=== PATIENT | male | born 1990 ===

== ENCOUNTER 2024-10-29 10:12 | Outpatient (REF) | payer OTHER, SELFPAY ==
--- OUTSIDE RECORDS SUMMARY | 2020-07-12 14:10 | XMS_ITS | Encounter Summary ---
Author Organization [facility] Address [address] [place] [address] Phone Care Team Providers Care Wellness Instructor Name Role Phone Jackeline Olson MD Primary Care Provider Encounter Details Date Type Department Care Team (Late st Contact Info) Description 07/12/2020 2:10 PM EDT Hospital Encounter [facility] [address] [place] [address] Roxann Dow FNP [address] [place] [phone] [email or web address] Social History Tobacco Use Types Packs/Day Years Used Date Smoking Tobacco: Never Smokeless Tobacco: Never Alcohol Use Standard Drinks/Week Comments Never 0 (1 standard drink = 0.6 oz pur e alcohol) Education Answer Date Recorded Are you interested in more education? Not on ariana e 06/04/2022 Are you concerned about learning? Not on file 06/04/2022 No 06/04/2022 No 06/04/2022 Digital Access Answer Date Recorded No 07/05/2022 No 07/05/2022 Reliable internet access at home? Not on file 07/05/2022 Device with a working camera? Not on file Intimate Partner Violence Answer Date R ecorded Are you denied basic needs s uch as food, clothing, or medical care? No 03/17/2023 In the past 12 months have y ou been in a relationship with a person who hurts, threatens, or tries to control you? No 03/17/2023 Are you denied basic needs s uch as food, clothing, or medical care? No 03/17/2023 In the past 12 months have y ou been in a relationship with a person who hurts, threatens, or tries to control you? No 03/17/2023 Comments Unknown Sex and Gender Information Value Date Recorded Sex Assigned at Female 04/02/2019 9:34 AM EST Legal Sex Male 8:40 AM EST Gender Identity Transgender Male 11/26/2019 7:53 PM EDT Sexual Orientation Queer 08/28/2020 9: 15 AM EDT documented as of this encounter Functional Status * Calculated C-SSRS Risk Score (Lifetime/Recent) Answer Date of Assessment Author No Risk Indicated 03/17/2023 10:03 PM Karla Gleason, ROBERT * [place] Suicide Severity Rating Scale (Screener/Recent Self-Report) Question Answer Date of Assessment Author 1. Wish to be (Past 1 Month) No 024 10:03 PM Karla Reardon RN 2. Non-Specific Active Suici blanche Thoughts (Past 1 Month) No 03/17/2023 10:03 PM Doyle Reardon RN 6. Suicidal Behavior (Lifetime) No 10:03 PM Karla Reardon RN documented as of this encounter Plan of Treatment Upcoming Encounters Date Type Department Care Team (Late st Contact Info) Description 12/18/2024 10:00 AM EST Office Visit [facility] Orthopedics & Sports Medicine [address] [place] [address] [place] [address] Bryce Issa DO 4 [facility] [place] [place] [address] [email or web address] documented as of this encounter Procedures Procedure Name Priority Date/Time Associated Diagnosis Comments XR KNEE 4 OR MORE VIEWS (RIGHT) Urgent/patient waiting 07/12/2020 2:30 PM EDT Bilateral chronic knee pain documented in this encounter Results * XR KNEE 4 OR MORE VIEWS (RIGHT) (07/12/2020 2:30 PM EDT) Anatomical Region Laterality Modality Knee Right Computed Radiogr aphy 07/12/2020 2:33 PM EDT Impressions 07/12/2020 2:54 PM EDT Normal examination ATTESTATION: Clemencia Schaffer as teaching physician, have reviewed the images for this case and if necessary edited the report originally created by Hira Stack. Narrative 07/12/2020 2:54 PM EDT TECHNIQUE: XR KNEE 4 OR MORE VIEWS (RIGHT), XR KNEE 4 OR MORE VIEWS (LEFT) COMPARISON: None. FINDINGS: Right knee: No bone, joint, or soft tissue abnormality is seen. Left knee: No bone, joint, or soft tissue abnormality is seen. Procedure Note Clemencia Terrell MD - 07/12/2020 TECHNIQUE: XR KNEE 4 OR MORE VIEWS (RIGHT), XR KNEE 4 OR MORE VIEWS(LEFT) COMPARISON: None. FINDINGS: Right knee: No bone, joint, or soft tissue abnormality is seen. Left knee: No bone, joint, or soft tissue abnormality is seen. IMPRESSION: Normal examination ATTESTATION: Clemencia Schaffer as teaching physician, have reviewed theimages for this case and if necessary edited the report originally createdby Hira Stack. Roxann Dow BAR FINISH OPERATOR IMG XR LOWER EXTREMITY Jeri l Result documented in this encounter Visit Diagnoses Not on filedocumented in this encounter Care Teams Wellness Instructor Relationship Specialty Start Date End Date Jackeline Olson MD [address] [place] [address] [email or web address] PCP - General Family Medicine 03/20/19 03/16/23 documented as of this encounter Additional Source Comments The information contained in this document represents components of the legal health record. It is not the complete legal health record.[facility]
--- OUTSIDE RECORDS SUMMARY | 2020-07-12 14:13 | XMS_ITS | Encounter Summary ---
Author Organization [facility] Address [address] [place] [address] Phone Care Team Providers Care Blending Supervisor Name Role Phone Jackeline Olson MD Primary Care Provider Encounter Details Date Type Department Care Team (Late st Contact Info) Description 07/12/2020 2:13 PM EDT Hospital Encounter [facility] [address] [place] [address] Roxann Dow FNP [address] [place] [phone] [email or web address] Social History Tobacco Use Types Packs/Day Years [...] 03/17/2023 10:03 PM Karla Gleason, ROBERT * [place] Suicide Severity Rating Scale (Screener/Recent Self-Report) Question [...] Description 12/18/2024 10:00 AM EST Office Visit [facility] Orthopedics & Sports Medicine [address] [place] [address] [place] [address] Bryce Issa DO 4 [facility] [place] [address] [email or web address] documented as of this encounter Procedures Procedure Name Priority Date/Time Associated Diagnosis Comments XR KNEE 4 OR MORE VIEWS (LEFT) Urgent/patient waiting 07/12/2020 2:31 PM EDT Bilateral chronic knee pain documented in this encounter Results * XR KNEE 4 OR MORE VIEWS (LEFT) (07/12/2020 2:31 PM EDT) Anatomical Region Laterality Modality Knee Left Computed Radiogr aphy 07/12/2020 2:33 PM EDT [...] report originally createdby Hira Stack. Roxann Dow WRECKING CRANE ENGINE OPERATOR IMG XR LOWER EXTREMITY Jeri l Result documented in this encounter Visit Diagnoses Not on filedocumented in this encounter Care Teams Blending Supervisor Relationship Specialty Start Date End Date Jackeline Olson MD [address] [place] [phone] [email or web address] PCP - General Family Medicine 03/20/19 03/16/23 documented as of this encounter Additional Source Comments The information contained in this document represents components of the legal health record. It is not the complete legal health record.[facility]
--- OUTSIDE RECORDS SUMMARY | 2024-10-25 10:00 | XMS_ITS | Encounter Summary ---
Author Organization [facility] Address [address] [place] [address] Phone Care Team Providers Care Quality Control Tech Name Role Phone Hira Dias TAR CHASER Primary Care Provider [phone] Reason for Visit * Reason Comments New Patient Hip Pain Patient is being see n today for right hip pain. Encounter Details Date Type Department Care Team (Late st Contact Info) Description 10/25/2024 10:00 AM EDT Office Visit [facility] Orthopedics & Sports Medicine [address] [place] [address] [place] [address] Caleb Shaw MD [address] [place] [address] [facility] [place] [place] [address] [email or web address] Pain (Primary Dx); Tear of right acetabular labrum, initial encounter Social History Tobacco Use Types Packs/Day Years [...] AM EDT documented as of this encounter Last Filed Vital Signs Vital Sign Reading Time Taken Comments Blood Pressure - - Pulse - - Temperature - - Respiratory Rate - - Oxygen Saturation - - Inhaled Oxygen Concentration - - Weight 60.8 kg (134 lb 0.6 oz) 10/25/2024 10:07 AM EDT Height - - Body Mass Index 22.31 03/17/2023 5:08 PM EST documented in this encounter Progress Notes * Caleb Shaw MD - 10/25/2024 10:00 AM EDT PRESENT ILLNESS: 10/25/2024: Mr. Roque is a 34 y.o. adult who presents for evaluation of his right hip pain. He feels this pain has been ongoing for months. He particularly endorses right groin and lateral hip region pain, otherwise describing it as feeling as though it is occurring at the center of his hip. He feels the pain is constant, and an average of 6-7/10, and going up to a 9.5/10 in severity, at its worst. He notes that the pain is exacerbated by walking, stairs, kneeling, getting into or out of a car, and putting on shoes. He saw his PCP, did physical therapy, saw another physician at [facility] and then [facility]. He had a right hip ultrasound-guided corticosteroid injection which relieved the pain. He hasnoted ongoing clicking in the right hip, accompanied by pain. He has also noted occasional locking of the hip in the past. He has been using a cane for aid with ambulation. He had a right hip MRI at [facility] which was not visible to me. 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 Genetics did not recommend any additional monitoring Hormone disorder Mild intermittent asthma Past Surgical History: Procedure Laterality Date MASTECTOMY BILATERAL 2014 TOTAL ABDOMINAL HYSTERECTOMY W/ BILATERAL SALPINGOOPHORECTOMY 2014 Current Outpatient Medications on File Prior to Visit Medication Sig Dispense Refill Last Dispense ascorbic acid, vitamin C, (VITAMIN C) 250 MG tablet Take 250 mg by mouth daily. Unknown (patient-reported) [id number] 167 mg-65 mg -50 mg Tab Take by mouth. Unknown (patient-reported) cholecalciferol (VITAMIN D3) 2,000 unit capsule Take 500 Units by mouth daily. Unknown (patient-reported) gluc loomis/chondro loomis A/vit C/Mn (GLUCOSAMINE 1500 COMPLEX ORAL) Take by mouth. Unknown (patient-reported) omega 3-qpv-jjg-fish oil 360-1,200 mg CpDR Take by mouth. Unknown (patient-reported) testosterone (ANDROGEL) 20.25 mg/1.25 gram (1.62 %) transdermal gel pump Apply 2 application topically daily. 150 g 1 Unknown (outside pharmacy) therapeutic multivitamin tablet Take 1 tablet by mouth daily. Unknown (patient-reported) acetaminophen (TYLENOL) 650 MG CR tablet Take 650 mg by mouth every 8 (eight) hours as needed for pain (specific location in comments). Unknown (patient-reported) albuterol 90 mcg/actuation inhaler Inhale 2 puffs into the lungs every 4 (four) hours as needed forwheezing or shortness of breath/dyspnea. (Patient not taking: Reported on 10/25/2024) 1 Inhaler 1 Unknown (outside pharmacy) dextromethorphan-guaiFENesin (MUCINEX DM) 30-600 mg per 12 hr tablet Take 1 tablet by mouth every 12 (twelve) hours. (Patient not taking: Reported on 10/25/2024) Unknown (patient-reported) diclofenac sodium (PENNSAID) 1.5 % Drop Apply 40 drops topically 4 (four) times a day. Unknown (patient-reported) fluticasone propionate (FLOVENT HFA) 220 mcg/actuation inhaler Inhale 1 puff into the lungs 2 (two)times a day. (Patient not taking: Reported on 10/25/2024) 1 Inhaler 5 Unknown (outside pharmacy) ketorolac (TORADOL) 10 mg tablet Take 1 tablet (10 mg total) by mouth every 6 (six) hours as neededfor pain (specific location in comments). (Patient not taking: Reported on 10/25/2024) 25 tablet 0 Unknown (outside pharmacy) tiZANidine (ZANAFLEX) 4 MG tablet Take 1 tablet (4 mg total) by mouth every 6 (six) hours as needed. (Patient not taking: Reported on 10/25/2024) 20 tablet 0 Unknown (outside pharmacy) traZODone (DESYREL) 50 MG tablet Take 50 mg by mouth nightly at bedtime. Unknown (patient-reported) No current facility-administered medications on file prior to visit. 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 ALLERGIES: No Known Allergies VITAL SIGNS: Wt 60.8 kg (134 lb 0.6 oz) BMI 22.31 kg/m?? ROS: Negative other than HPI. PHYSICAL EXAMINATION: Gen: No acute distress. HEENT: Normocephalic atraumatic. CVS: RRR. RESP: Nonlabored respirations. Gait: Antalgic limp, shortened stance on the right lower extremity. Right lower extremity: No open wounds or deformities. Positive tenderness to palpation noted over groin/anterior hip. Hip ROM: Flexion 115, ER 60, IR 15-20. Positive pain with hip end ROM. Stinchfield positive. FADIR and CARLITOS positive. Click and pain elicited. Hip abductor 5/5, hip flexors 5/5, quadriceps 5/5, hamstrings 5/5, gastrocsoleus 5/5, tibialis anterior 5/5, EHL 5/5. Sensation intact to light touch L1-S1. Warm well perfused. Brisk capillary refill. Dorsalis pedis pulse 2+. Left LE: No open wounds or deformities. Denied tenderness to palpation. Hip ROM: Flexion 130, ER 70, IR 30. No pain with hip ROM. Stinchfield negative. Hip abductor 5/5, hip flexors 5/5, quadriceps 5/5, hamstrings 5/5, gastrocsoleus 5/5, tibialis anterior 5/5, EHL 5/5. Sensation intact to light touch L1-S1. Warm well perfused. Brisk capillary refill. Dorsalis pedis pulse 2+. Imaging: My independent review and interpretation of the imaging follows. Outside imaging May 14, 2024: AP pelvis and right hip x-rays showed no evident fracture or dislocation. Mild degenerative changes both hips equivalent. Lumbar spine AP and lateral with minimal to mild spinal asymmetry and some straightening of lumbar lordosis. [facility] lumbar spine MRI 06/05/2024: Radiology report/impression following: Unremarkable MRI lumbar spine. [facility] hip MRI not visible demonstrated degenerative tear of right superior labrum. ASSESSMENT & PLAN: 34 y.o. adult with right hip labral tear. We discussed nonoperative and operative treatment options as well as the risks and benefits of the options discussed. At this point Mr. Roque has tried multiple nonoperative treatments including activity modification, pain control with NSAIDs, physical therapy, and injection. His pain and limitations in activity continue to occur, and have increased in frequency, to the point of being a near daily concern. His pain and limitations hinder his ability to do his activities of daily living, and have significantly impacted his quality of life. -He is interested in considering a right hip arthroscopy. - I have placed a referral to my colleague Dr. Issa for evaluation for this. -I recommended obtaining the right hip MRI imaging. Caleb Shaw MD documented in this encounter Plan of Treatment Upcoming Encounters Date Type Department Care Team (Late st Contact Info) Description 12/18/2024 10:00 AM EST Office Visit [facility]opedics & Sports Medicine [address] [place] [address] [place] [address] Bryce Issa DO [address] [place] [address] [facility] [place] [address] [email or web address] documented as of this encounter Visit Diagnoses Diagnosis Pain- Primary Generalized pain Tear of right acetabular labrum, initial encounter documented in this encounter Care Teams Quality Control Tech Relationship Specialty Start Date End Date Hira Dias, NIK [address] [place] [id number] PCP - General Nurse Practitioner 10/18/24 documented as of this encounter Additional Source Comments The information contained in this document represents components of the legal health record. It is not the complete legal health record.[facility]
--- OUTSIDE RECORDS SUMMARY | 2024-10-29 12:33 | XMS_ITS | Encounter Summary ---
Author Organization [facility] Address [address] [facility] [address] [place] [address] Phone Care Team Providers Care Mailing Machine Helper Name Role Phone Jackeline Olson MD Primary Care Provider Pcp, Unknown Primary Care Provider Hira Fowler NP Primary Care Provider [phone] Encounter Details Date Type Department Care Team (Late st Contact Info) Description 05/26/2020 Procedure Pass Non-Invasive Cardiology [address] [place] [address] Social History Tobacco Use Types Packs/Day Years Used Date Smoking Tobacco: Never Smokeless Tobacco: Never Alcohol Use Standard Drinks/Week Comments Never 0 (1 standard drink = 0.6 oz pur e alcohol) Comments Unknown Sex and Gender Information Value Date Recorded Sex Assigned at Female 04/02/2019 9:34 AM EST Legal Sex Male 8:40 AM EST Gender Identity Transgender Male 11/26/2019 7:53 PM EDT Sexual Orientation Queer 08/28/2020 9: 15 AM EDT documented as of this encounter Plan of Treatment Upcoming Encounters Date Type Department Care Team (Late st Contact Info) Description 12/18/2024 10:00 AM EST Office Visit [facility] [address] [place] [address] [place] [address] Bryce Issa, DO 4 [facility] [place] [address] [email or web address] documented as of this encounter Visit Diagnoses Not on filedocumented in this encounter Care Teams Mailing Machine Helper Relationship Specialty Start Date End Date Jackeline Olson MD 15 [facility] [address] [place] [address] [email or web address] PCP - General Family Medicine 03/20/19 03/16/23 Pcp, Unknown PCP - General 03/17/23 10/17/24 Hira Dias NP [address] [place] [phone] PCP - General Nurse Practitioner 10/18/24 documented as of this encounter Additional Source Comments The information contained in this document represents components of the legal health record. It is not the complete legal health record.[facility]
--- OUTSIDE RECORDS SUMMARY | 2024-10-29 12:33 | XMS_ITS | Encounter Summary ---
Author Organization [facility] Address [address] [place] [phone] Phone Care Team Providers Care Clothing Supervisor Name Role Phone Jackeline Olson MD Primary Care Provider Pcp, Unknown Primary Care Provider Hira Fowler NP Primary Care Provider [phone] Encounter Details Date Type Department Care Team (Late st Contact Info) Description 07/29/2020 Procedure Pass [address] [address] Social History Tobacco Use Types Packs/Day Years [...] Description 12/18/2024 10:00 AM EST Office Visit [facility]opedics & Sports Medicine [address] [place] [address] [place] [address] Bryce Issa, DO 4 [facility] [place] [address] [email or web address] documented as of this encounter Visit Diagnoses Not on filedocumented in this encounter Care Teams Clothing Supervisor Relationship Specialty Start Date End Date Jackeline Olson MD [address] [address] [email or web address] PCP - General Family Medicine 03/20/19 03/16/23 Pcp, Unknown PCP - General 03/17/23 10/17/24 Hira Dias NP [address] [place] [id number] PCP - General Nurse Practitioner 10/18/24 documented as of this encounter Additional Source Comments The information contained in this document represents components of the legal health record. It is not the complete legal health record.[facility]
--- OUTSIDE RECORDS SUMMARY | 2024-10-29 12:33 | XMS_ITS | Encounter Summary ---
Author Organization [facility] Address [address] [place] [address] Phone Care Team Providers Care Boatbuilder Supervisor Name Role Phone Jackeline Olson MD Primary Care Provider [phone] Pcp, Unknown Primary Care Provider Hira Fowler NP Primary Care Provider [phone] Encounter Details Date Type Department Care Team (Late st Contact Info) Description 07/29/2020 Procedure Pass [address] [address] Social History Tobacco Use Types Packs/Day Years [...] Description 12/18/2024 10:00 AM EST Office Visit [facility] Orthopedics & Sports Medicine [address] [place] [address] [place] [address] Bryce Issa, DO [address] [facility] [place] [address] [email or web address] documented as of this encounter Visit Diagnoses Not on filedocumented in this encounter Care Teams Boatbuilder Supervisor Relationship Specialty Start Date End Date Jackeline Olson MD [address] [address] [email or web address] PCP - General Family Medicine 03/20/19 03/16/23 Pcp, Unknown PCP - General 03/17/23 10/17/24 Hira Dias NP [address] [place] [phone] PCP - General Nurse Practitioner 10/18/24 documented as of this encounter Additional Source Comments The information contained in this document represents components of the legal health record. It is not the complete legal health record.[facility]
--- OUTSIDE RECORDS SUMMARY | 2024-10-29 12:33 | XMS_ITS | Clinical Summary ---
Author Organization [employer] [facility] Address [address] [place] [address] Phone Care Team Providers Care Appliance Parts Counter Clerk Name Role Phone Hira Dias CERTIFIED RESIDENTIAL MEDICATION AIDE Primary Care Provider [phone] Allergies No known active allergies Medications albuterol 90 mcg/actuation inhaler Inhale 2 puffs into the lungs every 4 (four) hours as needed for wheezing or shortness of breath/dyspnea. 1 Inhaler 1 0 Active Additional Information Patient not taking.Reported on 10/25/2024 dextromethorphan -guaiFENesin (MUCINEX DM) 30-600 mg per 12 hr tablet Take 1 tablet by mouth every 12 (twelve) hours. Active therapeutic multivitamin tablet Take 1 tablet by mouth daily. Active [id number]-gqi-[id number] [id number] 167 mg-65 mg -50 mg Tab Take by mouth. Activ e ascorbic acid, vitamin C, (VITAMIN C) 250 MG tablet Take 250 mg by mouth daily. Active cholecalciferol (VITAMIN D3) 2,000 unit capsule Take 500 Units by mouth daily. Active fluticasone propionate (FLOVENT HFA) 220 mcg/actuation inhaler Inhale 1 puff into the lungs 2 (two) times a day. 1 Inhaler 5 0 Active Additional Information Patient not taking.Reported on 10/25/2024 omega 3-lhg-acl-fish oil 360-1,200 mg CpDR Take by mouth. Activ e gluc loomis/chondro loomis A/vit C/Mn (GLUCOSAMINE 1500 COMPLEX ORAL) Take by mouth. Activ e testosterone (ANDROGEL) 20.25 mg/1.25 gram (1.62 %) transdermal gel pumpIndications: Hormone disorder Apply 2 application topically daily. 150 g 1 2 Active tiZANidine (ZANAFLEX) 4 MG tablet Take 1 tablet (4 mg total) by mouth every 6 (six) hours as needed. 20 tablet 4 Active Additional Information Patient not taking.Reported on 10/25/2024 ketorolac (TORADOL) 10 mg tablet Take 1 tablet (10 mg total) by mouth every 6 (six) hours as needed for pain (specific location in comments). 25 tablet 4 Active Additional Information Patient not taking.Reported on 10/25/2024 traZODone (DESYREL) 50 MG tablet Take 50 mg by mouth nightly at bedtime. Active diclofenac sodium (PENNSAID) 1.5 % Drop Apply 40 drops topically 4 (four) times a day. Active acetaminophen (TYLENOL) 650 MG CR tablet Take 650 mg by mouth every 8 (eight) hours as needed for pain (specific location in comments). Active Active Problems Problem Noted Date Diagnosed Date Heart palpitations 07/12/2020 Palpitations 05/26/2020 Assessment & Plan (05/26/2020 2:18 PM EDT): Baseline EKG obtained in office today showed NSR without obvious conduction abnormalities. Will get labs although given time course, suspect these will be normal. Event monitor ordered. Trigger finger, left middle finger 04/02/2019 Assessment & Plan (04/02/2019 12:26 PM EST): Reassured patient that this presentation is not at all consistent with skin cancer and I think he has trigger finger. I explained what this is and offered a steroid injection if desired, which he did wish to proceed with today. Risks, benefits and alternatives discussed with patient. Consent form signed and scanned into chart. The skin was cleaned with ChloraPrep and cooled with ethyl chloride spray. The palpable nodule was injected with 0.5 mL of a 1:1 mix of 1% lidocaine with epinephrine and Kenalog 40 mg/mL. Patient tolerated the procedure well, and a small pressure dressing was placed. 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 However, given his predisposition to skin cancer, I do think it is best to be cautious. I explained that he can get a special pillow for the ear and can probably find this online, and if this is ineffective I will refer him to dermatology for dermoscopy. History of laparoscopy-assisted vaginal hysterec brandin 01/23/2015 Mild intermittent asthma Assessment & Plan (04/02/2019 12:24 PM EST): Stable with intermittent use of albuterol. No indication for controller medicine at this time. Hormone disorder Assessment & Plan (12/04/2019 3:45 PM EDT): Very overdue for labs, re-ordered and asked pt to have these drawn soon. Assessment & Plan (04/02/2019 12:14 PM EST): Stable, continue testosterone. Lab work today. BRCA gene mutation positive Encounters Date Type Department Care Team Description 10/25/2024 10:00 AM EDT Office Visit [facility] [address] [place] [address] [place] [address] Caleb Shaw MD Pain (Primary Dx); Tear of right acetabular labrum, initial encounter 10/22/2024 Orders Only [facility] [address] [place] [address] [place] [address] Radha Butts Pain (Primary Dx) 10/18/2024 Orders Only [facility] [address] [place] [address] ProviderArpit MD from Last 3 Months Immunizations Immunization Administration Dates Next Due COVID-19 (Pre-11/29) Pfizer Vaccine, mRNA, PF ,05/09/2020 Influenza Quadrivalent Preservative Free IM 02/2019 Influenza Quadrivalent w/ Preservative IM 2015 Tdap 02/07/2013 Social History Tobacco Use Types Packs/Day Years [...] Orientation Queer 08/28/2020 9: 15 AM EDT Last Filed Vital Signs Vital Sign Reading Time Taken Comments Blood Pressure 95/58 03/17/2023 10:33 PM EST Pulse 68 03/17/2023 10:33 PM EST Temperature 36.7 C (98.1 F) 03/17/2023 10:33 PM EST Respiratory Rate 16 03/17/2023 10:33 PM EST Oxygen Saturation 95% 03/17/2023 10:33 PM EST Inhaled Oxygen Concentration - - Weight 60.8 kg (134 lb 0.6 oz) 10/25/2024 10:07 AM EDT Height 165.1 cm (5' 5 ) 03/17/2023 5:08 PM EST Body Mass Index 22.31 03/17/2023 5:08 PM EST Plan of Treatment Upcoming Encounters Date Type Department Care Team (Late st Contact Info) Description 12/18/2024 10:00 AM EST Office Visit [facility] [address] [place] [address] [place] [address] Bryce Issa DO [address] [place] [address] [facility] [place] [address] Health Maintenance Due Date Last Done Comments HEPATITIS C SCREENING 08/17/2009 HIV ONE-TIME SCREENING (18-65 YEARS) 08/17/2009 DEPRESSION SCREENING 04/02/2020 04/02/2019, 04/02/19 20 Adult Td,Tdap Booster 05/13/2033 05/14/2023 , 09/19/2013, 02/07/2013 SMOKING STATUS SCREENING (Once After 26 Yrs) Completed 03/17/2023 PNEUMOCOCCAL VACCINES (0-49 years) Completed 05/14/2023 COVID-19 VACCINE Completed 10/18/2024, 07/2024, 05/14/2023, Additional history exists INFLUENZA VACCINE Completed 10/18/2024, , 02/13/2024, Additional history exists MENINGOCOCCAL VACCINES (ACWY) Aged Out 10/18/2024 No longer eligible based on patient's age to complete this topic HEPATITIS A VACCINES Aged Out No long er eligible based on patient's age to complete this topic HIB VACCINES Aged Out No longer eligi ble based on patient's age to complete this topic MENINGOCOCCAL VACCINES (B) Aged Out N o longer eligible based on patient's age to complete this topic Medical Devices Not on file Procedures Procedure Name Priority Date/Time Associated Diagnosis Comments OUTSIDE XR EXTREMITY UPPER REPORT ONLY Routine 10/18/2024 2:28 PM EDT OUTSIDE XR EXTREMITY UPPER REPORT ONLY Routine 10/18/2024 11:28 AM EDT OUTSIDE MR SPINE REPORT ONLY Routine 10/18/2024 11:27 AM EDT from Last 3 Months Results * Outside XR Extremity Upper Report Only (10/18/2024 2:28 PM EDT) Historical Provider MD AGUIRRE XR UPPER EXTREMITY Fi nal Result * Outside XR Extremity Upper Report Only (10/18/2024 11:28 AM EDT) Historical Provider MD AGUIRRE XR UPPER EXTREMITY Fi nal Result * Outside MR Spine Report Only (10/18/2024 11:27 AM EDT) Historical Provider MD AGUIRRE MR SPINE Final Res ult from Last 3 Months Insurance , [address] [place] [address] [employer] , [address] [place] [address] [employer] , [address] [place] [address] [employer] , [address] [employer] Care Teams Appliance Parts Counter Clerk Relationship Specialty Start Date End Date Hira Dias NP [address] [place] [id number] PCP - General Nurse Practitioner 10/18/24 Additional Source Comments The information contained in this document represents components of the legal health record. It is not the complete legal health record.[facility]
--- OUTSIDE RECORDS SUMMARY | 2024-10-29 12:33 | XMS_ITS | Encounter Summary ---
Author Organization [facility] Address [address] [place] [address] Phone Care Team Providers Care Machine Operator Hay Stacker Name Role Phone Pcp, Unknown Primary Care Provider Hira [employer] PROGRAMMER Primary Care Provider [phone] Encounter Details Date Type Department Care Team (Late st Contact Info) Description 03/17/2023 Procedure Pass [facility], Ct Scan - [facility] [address] [place] [address] Social History Tobacco Use Types Packs/Day Years [...] No Risk Indicated 03/17/2023 10:03 PM Karla Gleason RN * Morrison Suicide Severity Rating Scale (Screener/Recent Self-Report) Question [...] Description 12/18/2024 10:00 AM EST Office Visit [facility] [address] [place] [address] [place] [address] Bryce Issa DO [address] [facility] [place] [address] [email or web address] documented as of this encounter Visit Diagnoses Not on filedocumented in this encounter Care Teams Machine Operator Hay Stacker Relationship Specialty Start Date End Date Pcp, Unknown PCP - General 03/17/23 10/17/24 Hira Dias, NIK [address] [place] [address] PCP - General Nurse Practitioner 10/18/24 documented as of this encounter Additional Source Comments The information contained in this document represents components of the legal health record. It is not the complete legal health record.[facility]
--- OUTSIDE RECORDS SUMMARY | 2024-10-29 12:33 | XMS_ITS | Encounter Summary ---
Author Organization [facility] Address [address] [place] [address] Phone Care Team Providers Care Cement Rubber Name Role Phone Hira Dias CLINICAL REVIEWER Primary Care Provider [phone] Encounter Details Date Type Department Care Team (Late st Contact Info) Description 10/22/2024 Orders Only [facility] [address] [place] [address] [place] [address] Radha Butts [address] [place] [address] Pain (Primary Dx) Social History Tobacco Use Types Packs/Day Years [...] Description 12/18/2024 10:00 AM EST Office Visit [facility] [address] [place] [address] [place] [address] Bryce Issa DO [address] [place] [address] Orthopedics & Sports Medicine, [facility] [place] [address] [email or web address] Scheduled Orders Name Type Priority Associated Diagnoses Orde r Schedule XR Hip with Pelvis (Right) Imaging Routine Pain Expected: 10/25/2024, Expires: 01/21/2025 documented as of this encounter Visit Diagnoses Diagnosis Pain- Primary Generalized pain documented in this encounter Care Teams Cement Rubber Relationship Specialty Start Date End Date Hira Dias NP [address] [place] [address] PCP - General Nurse Practitioner 10/18/24 documented as of this encounter Additional Source Comments The information contained in this document represents components of the legal health record. It is not the complete legal health record.[facility]
--- OUTSIDE RECORDS SUMMARY | 2024-10-29 12:33 | XMS_ITS | Encounter Summary ---
Author Organization [facility] Address [address] [place] [address] Phone Care Team Providers Care Nutrition Services Associate Name Role Phone Hira Dias TERRITORY SUPERVISOR Primary Care Provider [phone] Reason for Referral * MRI/CAT Scan - Closed Specialty Diagnoses / Procedures Referred By Tono faye Referred To Contact Radiology Procedures Outside MR Spine Report Only [facility] [address] [place] [address] Phone: tel: fax: Referral ID Status Reason Start Date Expiration Date Visits Re quested Visits Authorized [id number] Closed 10/18/2024 1 1 Encounter Details Date Type Department Care Team (Late st Contact Info) Description 10/18/2024 Orders Only [facility] [address] [place] [address] ProviderArpit MD [facility] [address] Social History Tobacco Use Types Packs/Day Years [...] Description 12/18/2024 10:00 AM EST Office Visit [facility] [address] [place] [address] [place] [address] Bryce Issa DO [address] [place] [address] [facility] [place] [address] documented as of this encounter Procedures Procedure Name Priority Date/Time Associated Diagnosis Comments OUTSIDE XR EXTREMITY UPPER REPORT ONLY Routine 10/18/2024 2:28 PM EDT OUTSIDE XR EXTREMITY UPPER REPORT ONLY Routine 10/18/2024 11:28 AM EDT OUTSIDE MR SPINE REPORT ONLY Routine 10/18/2024 11:27 AM EDT documented in this encounter Results * Outside XR Extremity Upper Report Only (10/18/2024 2:28 PM EDT) us Historical Provider MD AGUIRRE XR UPPER EXTREMITY Fi nal Result * Outside XR Extremity Upper Report Only (10/18/2024 11:28 AM EDT) us Historical Provider MD AGUIRRE XR UPPER EXTREMITY Fi nal Result * Outside MR Spine Report Only (10/18/2024 11:27 AM EDT) us Historical Provider MD AGUIRRE MR SPINE Final Res ult documented in this encounter Visit Diagnoses Not on filedocumented in this encounter Care Teams Nutrition Services Associate Relationship Specialty Start Date End Date Hira Dias, NIK [address] [place] [address] PCP - General Nurse Practitioner 10/18/24 documented as of this encounter Additional Source Comments The information contained in this document represents components of the legal health record. It is not the complete legal health record.[facility]
== END 2024-10-29 10:13 | disposition home or self-care (01) ==
LOC: CF 10:12
DX: Z13.89 Encounter for screening for other disorder (principal)